=== PATIENT | male | born 1970 | race Caucasian/White ===

== ENCOUNTER 2018-08-21 07:03 | Day surgery (SDC) | payer OTHER ==
[~2018-08-21 07:03] MED LIST: CEFAZOLIN 2 GM/50 ML (PMX) 50 ML IVPB; SOD CHLORIDE 0.9% 1,000 ML IV
[2018-08-21] MEDS: POLYMYXIN/BACITRACIN 1L IRRIG (07:58)
[2018-08-21] MEDS: BUPIVACAINE 0.25% (MPF) 30 ML INJ (07:58)
[2018-08-21 08:06] LABS: ADD MAN DIFF? NO
[2018-08-21 08:14] LABS: BASOPHILS % 0.3 % (0.0-2.0); EOSINOPHILS # 0.2 10^3/ul (0.0-0.5); EOSINOPHILS % 3.2 % (0.0-7.0); HEMATOCRIT 43.6 % (42.0-52.0); LYMPHOCYTES # 1.8 10^3/ul (0.8-2.9); LYMPHOCYTES % 29.4 % (15.0-51.0); MEAN CORPUSCULAR HEMOGLOBIN 29.6 pg (29.0-33.0); MEAN CORPUSCULAR HGB CONC 34.4 g/dl (32.0-37.0); MEAN PLATELET VOLUME 11.7 fl (7.4-10.4); MONOCYTE # 0.5 10^3/ul (0.3-0.9); MONOCYTES % 8.1 % (0.0-11.0); NEUTROPHIL # 3.5 10^3/ul (1.6-7.5); NEUTROPHILS % 58.5 % (39.0-77.0); PLATELET COUNT 159 10^3/UL (140-415); RED BLOOD COUNT 5.07 10^6/ul (4.70-6.10); RED CELL DISTRIBUTION WIDTH 13.1 % (11.5-14.5)
[2018-08-21 08:27] LABS: INR 0.94; PROTIME 12.7 Sec (11.9-14.9)
[2018-08-21 08:28] LABS: ALANINE AMINOTRANSFERASE 95 IU/L (13-69); ALBUMIN 4.4 g/dl (3.3-4.9); ALBUMIN/GLOBULIN RATIO 1.37; ALKALINE PHOSPHATASE 90 IU/L (42-121); ANION GAP 10 (5-13); ASPARTATE AMINO TRANSFERASE 39 IU/L (15-46); BILIRUBIN,INDIRECT 0.6 mg/dl (0-1.1); BILIRUBIN,TOTAL 0.6 mg/dl (0.2-1.3); BLOOD UREA NITROGEN 22 mg/dl (7-20); CALCIUM 8.5 mg/dl (8.4-10.2); CARBON DIOXIDE 24 mmol/L (21-31); CHLORIDE 109 mmol/L (97-110); CREATININE 0.68 mg/dl (0.61-1.24); Estimated GFR > 60 mL/min (>60); GLUCOSE 103 mg/dl (70-220); PARTIAL THROMBOPLASTIN TIME 33.5 Sec (23.0-35.0); POTASSIUM 3.9 mmol/L (3.5-5.1); SODIUM 143 mmol/L (135-144); TOTAL PROTEIN 7.6 g/dl (6.1-8.1)
[2018-08-21] MEDS ORDERED: MEPERIDINE 25 MG INJ IV (09:00)
[2018-08-21] MEDS ORDERED: IPRATROPIUM (NEB) 0.5 MG/2.5 ML AMP HHN (09:00)
[2018-08-21] MEDS ORDERED: ALBUTEROL 0.083% (NEB) 2.5 MG/3 ML AMP HHN (09:00)
[2018-08-21] MEDS ORDERED: LABETALOL HCL 20MG INJ IV (09:00)
[2018-08-21] MEDS ORDERED: HYDROmorphONE 1 MG/5 ML IV SYRINGE IV ×3 (09:00)
[2018-08-21] MEDS ORDERED: TRIMETHOBENZAMIDE 100 MG/ML VIAL IM (09:00)
[2018-08-21] MEDS ORDERED: DIPHENHYDRAMINE 50 MG INJ IV (09:00)
[2018-08-21] MEDS ORDERED: ONDANSETRON 4 MG INJ IV (09:00)
[2018-08-21] MEDS ORDERED: hydrALAzine 20 MG INJ IV (09:00)
[2018-08-21] MEDS ORDERED: FENTAnyl 50 MCG/ML VIAL IV ×2 (09:00)
[2018-08-21] MEDS ORDERED: OXYCODONE/ACETAMINOPHEN (5/325) TAB PO ×2 (09:00)
[2018-08-21] MEDS ORDERED: MIDAZOLAM 1 MG/ML 2 ML INJ IV (09:00)
[2018-08-21] MEDS ORDERED: EPHEDrine SULFATE 50 MG/5 ML SYG IV (09:00)
[2018-08-21] MEDS ORDERED: MIDAZOLAM 1 MG/ML 2 ML INJ (09:05)
[2018-08-21] MEDS ORDERED: GLYCOPYRROLATE 0.4 MG INJ (09:05)
[2018-08-21] MEDS ORDERED: PROPOFOL 20 ML (09:05)
[2018-08-21] MEDS ORDERED: NEOSTIGMINE 3 MG/3 ML SYRINGE (09:05)
[2018-08-21] MEDS ORDERED: FENTAnyl 50 MCG/ML VIAL (09:05)
[2018-08-21] MEDS ORDERED: CEFAZOLIN 1 GM INJ (09:05)
[2018-08-21] MEDS ORDERED: ROCURONIUM 50 MG INJ (09:05)
[2018-08-21] MEDS ORDERED: DEXAMETHASONE 4 MG/ML 1 ML INJ (09:07)
[2018-08-21] MEDS ORDERED: ONDANSETRON 4 MG INJ (09:07)
[2018-08-21] MEDS ORDERED: ROPIVACAINE 0.5 % 30 ML VIAL (09:10)
[2018-08-21] MEDS ORDERED: KETOROLAC 30 MG INJ (10:06)
[2018-08-21] MEDS: HYDROCODONE/APAP (5/325) TAB PO (10:30)
[2018-08-21] MEDS: FENTAnyl 50 MCG/ML VIAL IV ×2 (10:48→10:54)
== END 2018-08-21 12:15 | disposition home or self-care (01) ==
LOC: SDS 07:03
DX: K40.30 Unilateral inguinal hernia, with obstruction, without gangrene, not specified as recurrent (principal)
CPT/HCPCS: 49507; 80053; 85025; 85610; 85730

== ENCOUNTER 2019-01-08 06:47 | Day surgery (SDC) | payer OTHER ==
[2019-01-08] MEDS ORDERED: ROCURONIUM 50 MG INJ (10:14)
[2019-01-08] MEDS ORDERED: NEOSTIGMINE 3 MG/3 ML SYRINGE (10:14)
[2019-01-08] MEDS ORDERED: GLYCOPYRROLATE 0.4 MG INJ (10:14)
[2019-01-08] MEDS ORDERED: CEFAZOLIN 1 GM INJ (10:14)
[2019-01-08] MEDS ORDERED: PROPOFOL 20 ML (10:14)
[2019-01-08] MEDS ORDERED: MIDAZOLAM 1 MG/ML 2 ML INJ (10:16)
[2019-01-08] MEDS ORDERED: FENTAnyl 50 MCG/ML VIAL (10:16)
[2019-01-08] MEDS ORDERED: ONDANSETRON 4 MG INJ (10:16)
[2019-01-08] MEDS ORDERED: DEXAMETHASONE 4 MG/ML 5 ML INJ (10:17)
[2019-01-08] MEDS ORDERED: ROPIVACAINE 0.5 % 30 ML VIAL (10:21)
[2019-01-08] MEDS ORDERED: TRIMETHOBENZAMIDE 100 MG/ML VIAL IM (10:30)
[2019-01-08] MEDS ORDERED: hydrALAzine 20 MG INJ IV (10:30)
[2019-01-08] MEDS ORDERED: OXYCODONE/ACETAMINOPHEN (5/325) TAB PO ×2 (10:30)
[2019-01-08] MEDS ORDERED: LABETALOL HCL 20MG INJ IV (10:30)
[2019-01-08] MEDS ORDERED: MIDAZOLAM 1 MG/ML 2 ML INJ IV (10:30)
[2019-01-08] MEDS ORDERED: MEPERIDINE 25 MG INJ IV (10:30)
[2019-01-08] MEDS ORDERED: HYDROmorphONE 1 MG/5 ML IV SYRINGE IV (10:30)
[2019-01-08] MEDS ORDERED: IPRATROPIUM (NEB) 0.5 MG/2.5 ML AMP HHN (10:30)
[2019-01-08] MEDS ORDERED: ALBUTEROL 0.083% (NEB) 2.5 MG/3 ML AMP HHN (10:30)
[2019-01-08] MEDS ORDERED: EPHEDrine SULFATE 50 MG/5 ML SYG IV (10:30)
[2019-01-08] MEDS ORDERED: FENTAnyl 50 MCG/ML VIAL IV (10:30)
[2019-01-08] MEDS ORDERED: DIPHENHYDRAMINE 50 MG INJ IV (10:30)
[2019-01-08] MEDS: POLYMYXIN/BACITRACIN 1L IRRIG IRR (11:02)
[2019-01-08] MEDS: FENTAnyl 50 MCG/ML VIAL IV ×3 (11:37→12:16)
[2019-01-08] MEDS: ONDANSETRON 4 MG INJ IV (11:37)
[2019-01-08] MEDS: HYDROmorphONE 1 MG/5 ML IV SYRINGE IV ×3 (11:37→12:16)
[2019-01-08] MEDS: HYDROCODONE/APAP (5/325) TAB PO (12:14)
== END 2019-01-08 13:28 | disposition home or self-care (01) ==
LOC: SDS 06:47
DX: K40.91 Unilateral inguinal hernia, without obstruction or gangrene, recurrent (principal)
CPT/HCPCS: 49651